=== PATIENT | male | born 1985 | race Caucasian/White ===

== ENCOUNTER 2017-03-25 11:10 | Emergency (ER) | payer MEDICAID, OTHER ==
[2017-03-25 11:16] VITALS: RESP 16; TEMP 98.4
[2017-03-25] MEDS ORDERED: IBUPROFEN 600 MG TAB PO ONE (12:12)
[2017-03-25] MEDS ORDERED: CEPHALEXIN 500 MG CAP PO ONE (12:12)
[2017-03-25] MEDS ORDERED: TDAP ADULT 0.5 ML INJ (BOOSTRIX) IM ONE (12:12)
--- NOTE | 2017-03-25 12:12 | EDPHY ---
H & P Stated Complaint: amputation of left index finger tip. HPI/ROS: Chief complaint: Amputation of left pointer finger tip History of present illness: This is a 32-year-old male who presents to the emergency department after amputating the tip of his left pointer finger. He was working on a machine at work when it turned on and cut the tip off. He has had significant pain at the tip. There has been bleeding that has been controlled with a dressing. He is still moving the finger. No other trauma reported. His tetanus is not up-to-date. - Personal History Current Tetanus Diphtheria and Acellular Pertussis (TDAP): Unsure - Medical/Surgical History Hx Asthma: No Hx Chronic Respiratory Disease: No Hx Diabetes: No Hx Cardiac Disease: No Hx Renal Disease: No Hx Cirrhosis: No Hx Alcoholism: No Hx HIV/AIDS: No Hx Splenectomy or Spleen Trauma: No Other PMH: Bipolar. - Social History Smoking Status: Current every day smoker - Physical Exam Exam: General: Alert, nontoxic Skin: Amputation to the distal aspect of the left pointer finger, it appears to have amputated just distal to the nail fold going down to the pad. Bone is not visualized but felt on palpation. Musculoskeletal: Patient can flex and extend his finger in the DIPJ, PIP and MCP joint. Vascular: Brisk bleeding from the wound distally with good capillary refill to the rest of the finger. Neurologic: Sensation does appear intact in the left pointer finger. Constitutional: Initial Vital Signs Temperature (C) 36.9 C 03/25/17 11:11 Heart Rate 70 03/25/17 11:11 Respiratory Rate 16 03/25/17 11:11 Blood Pressure 127/91 H 03/25/17 11:11 O2 Sat (%) 97 03/25/17 11:11 O2 Delivery Mode Room Air Allergies/Adverse Reactions: No Known Allergies Allergy (Unverified 03/25/17 11:16) Home Medications: Medication Instructions Recorded Cephalexin [Keflex] 500 mg PO QID 7 Days cap 03/25/17 Hydrocodone/APAP 5/325 [[place] 1 tab PO Q6H #12 tab 03/25/17 5/325 (*)] Medical Decision Making - Diagnostics Imaging Results: Imaging Impressions Finger X-Ray 03/25/17 11:16 Impression: Open fracture to the left third digit distal tuft. Imaging: I viewed and interpreted images myself ED Course/Re-evaluation: Patient seen under the supervision of my primary supervising physician Dr. Viktoria Plunkett. Patient presents to the emergency department for an amputation of his left pointer finger. The finger has been anesthetized with a Marcaine digital block with good pain control. X-ray does confirm bony involvement. His tetanus is updated. He is started on Keflex. Hand surgery, Dr. Ibeth Feliciano is consulted. He is comfortable with patient being placed in a dressing and following up in clinic this week. This is performed. I have discussed the importance of close follow-up with a hand surgeon for recheck. Return precautions are given. Patient voiced understanding and agreement with plan. Differential Diagnosis: Included but not limited to amputation of soft tissue, bony fracture or foreign body contamination - Data Points Medications Given: Discontinued Medications Cephalexin HCl (Keflex) 500 mg PO EDNOW ONE PRN Reason: Protocol Stop: 03/25/17 12:13 Last Admin: 03/25/17 12:19 Dose: 500 mg Diphtheria/Tetanus/Acell Pertussis (Boostrix) 0.5 ml IM .ONCE ONE Stop: 03/25/17 12:13 Last Admin: 03/25/17 12:18 Dose: 0.5 ml Ibuprofen (Motrin) 600 mg PO EDNOW ONE Stop: 03/25/17 12:13 Last Admin: 03/25/17 12:19 Dose: 600 mg Departure - Departure Disposition: Home, Routine, Self-Care Clinical Impression: Amputation of finger tip Qualifiers: Encounter type: initial encounter Qualified Code(s): S68.129A - Partial traumatic metacarpophalangeal amputation of unspecified finger, initial encounter Condition: Good Instructions: Finger Amputation (ED) Additional Instructions: Please call today to arrange a follow-up appointment with the hand surgeon this week for recheck without fail In regards to pain control see the following: Use ibuprofen [600] mg [3] times a day for the next 2-3 days for pain In addition You have been prescribed [[place]] for pain. [[place]] contains Tylenol, do not take extra Tylenol/acetaminophen/Apap with it. It is sedating. Take antibiotics as prescribed If symptoms worsen or new symptoms develop return to the emergency room for recheck Referrals: Patient,NotPresent [Unknown] - As per Instructions Ibeth Feliciano MD [Medical Doctor] - As per Instructions Prescriptions: Cephalexin [Keflex] 500 mg PO QID 7 Days cap Hydrocodone/APAP 5/325 [[place] 5/325 (*)] 1 tab PO Q6H #12 tab
[2017-03-25 12:21] VITALS: BP 139/90; PULSE 92; O2SAT 98
== END 2017-03-25 12:32 | disposition home or self-care (01) ==
DX: S68.121A Partial traumatic metacarpophalangeal amputation of left index finger, initial encounter (principal); F17.200 Nicotine dependence, unspecified, uncomplicated; Z23 Encounter for immunization; W45.8XXA Other foreign body or object entering through skin, initial encounter; Y92.69 Other specified industrial and construction area as the place of occurrence of the external cause; Y99.0 Civilian activity done for income or pay; Y93.89 Activity, other specified